=== PATIENT | female | born 2000 | race Caucasian/White ===

== ENCOUNTER 2019-12-10 11:50 | Emergency (ER) | payer SELFPAY ==
[2019-12-10 11:56] VITALS: BP 127/57; PULSE 70; RESP 18; TEMP 36.9; O2SAT 99
--- NOTE | 2019-12-10 12:04 | ED.EAR ---
HPI - Ear Problem General Chief complaint: Ear Stated complaint: Hearing Time Seen by Provider: 12/10/19 12:04 Source: patient and RN notes reviewed History of Present Illness HPI Narrative: Patient is a 19-year-old female presents the urgent care with complaints of issues hearing. Patient states is been ongoing since the end of September and it is worse in the last couple days. Patient states this is occurred before when she has had impacted cerumen. Patient has not followed up with her PCP or an ENT. Patient states that she does have some popping where she can hear for a little bit and then it worsens again. Patient denies any other symptoms or URI symptoms. No other acute complaints. No acute distress noted. Patient read the plan of care. Related Data Home Medications Medication Instructions Recorded Confirmed No Home Medications 12/10/19 12/10/19 Allergies Allergy/AdvReac Type Severity Reaction Status Date / Time No Known Allergies Allergy Verified 12/10/19 12:12 Review of Systems Review of Systems: Narrative: CONSTITUTIONAL: Denies fever, chills, or sweats. EYES: Denies visual changes, redness, or discharge. ENT: Reports of difficulty hearing and cerumen impaction CARDIOVASCULAR: Denies chest pain, palpitations, or edema. RESPIRATORY: Denies cough or dyspnea. GASTROINTESTINAL: Denies abdominal pain, nausea, vomiting, or diarrhea. GENITOURINARY: Denies dysuria or hematuria. SKIN: Denies rash or itching. MUSCULOSKELETAL: Denies back pain, joint pain, or myalgia. NEUROLOGIC: Denies headache, numbness, or weakness. All other systems reviewed are negative, except as documented in HPI. PMFSH Social History Social History Smoking status: Never smoker Alcohol intake: never Comments At the time of my signature, I reviewed and agree with the nursing past medical, surgical, social, and family history. There is no relevant family history pertinent to the patient complaint. Exam Narrative: Exam Narrative: GENERAL: This is a well-nourished, well-developed patient, in no apparent distress. HEAD: normocephalic, atraumatic. EYES: PERRL. Sclera clear/white. Vision is grossly intact. EARS: External ears normal, auditory canals clear and without drainage, unable to visualize bilateral TMs due to cerumen impaction. NOSE: External nose normal with no obvious nasal discharge, nares without redness, no rhinorrhea. THROAT: Mucous membranes moist NECK: Neck supple CARDIOVASCULAR: Regular rate and rhythm without murmurs, gallops, or rubs. RESPIRATORY: Clear to auscultation. Breath sounds equal bilaterally. No wheezes, rales, or rhonchi. SKIN: warm, intact with no suspicious lesions or rash, good texture and turgor. NEURO: awake, alert, and oriented to person, place and time. There were no obvious focal neurologic abnormalities. EXTREMITIES: No clubbing, cyanosis, or edema. Course Vital Signs Vital signs: Vital Signs Temperature 98.4 F 12/10/19 11:56 Pulse Rate 70 12/10/19 11:56 Respiratory Rate 18 12/10/19 11:56 Blood Pressure 127/57 L 12/10/19 11:56 Pulse Oximetry 99 12/10/19 11:56 Temperature 98.4 F 12/10/19 11:56 Pulse Rate 70 12/10/19 11:56 Respiratory Rate 18 12/10/19 11:56 Blood Pressure 127/57 L 12/10/19 11:56 Pulse Oximetry 99 12/10/19 11:56 Reviewed Procedures Ear Wax Removal Both Ears: Cerumenolytic Used: other (50/50 warm water and peroxide) Results: Re-examined: some cerumen remains TM Examination: TM(s) intact, normal appearance Patient Tolerated Procedure: well and no complications Complications: no problems Additional Comments: 50/50 warm water and peroxide used to bilateral ears for bilateral cerumen impaction. Some cerumen removed and patient tolerated well. No foreign body with the exception of cerumen. Medical Decision Making MDM Narrative Medical decision making narrative: Advised patient to use a warm wash rag over
== END 2019-12-10 12:25 | disposition home or self-care (01) ==
PROVIDERS: Emergency Provider Nurse Practitioner Family
DX: H61.23 Impacted cerumen, bilateral (principal)
CPT/HCPCS: 69209; 99212; G0463